=== PATIENT | female | born 1995 | race Caucasian/White ===

== ENCOUNTER 2016-10-13 12:26 | Emergency (ER) | payer OTHER ==
[2016-10-13 12:40] VITALS: BP 117/76; PULSE 112; RESP 18; O2SAT 100
[2016-10-13] MEDS ORDERED: Phenazopyridine 97.5 mg Tablet PO ONE (13:00)
--- NOTE | 2016-10-13 13:01 | ED.REPORT ---
HPI- Female Date of Service Oct 13, 2016 ED Provider: Valentino Bai MD Pt is a 21 y/o female w/ a hx pyelonephritis presenting to the ED c/o UTI-like symptoms onset 6 days ago. The patient has a history of pyelonephritis and believes this episode is exactly similar. She c/o left flank pain, dysuria, urinary frequency, urinary urgency. Pt denies fever, chills, hematuria, vaginal discharge, N/V/D, history of kidney stones, history of urinary tract surgeries, history of STDs. Nursing Notes Stated Complaint: KIDNEY PAIN Chief Complaint: Female Abdominal Pain Nursing Notes Reviewed: Yes Allergies: Coded Allergies: Sulfa (Sulfonamide Antibiotics) (Verified Allergy, Unknown, 10/13/16) Scheduled Ciprofloxacin (Ciprofloxacin) 500 Mg Tablet 500 MG PO BID General Time Seen by MD: 12:58 Chief Complaint Dysuria Hx Obtained From: Patient Arrived By: Walk-in Sudden in Onset?: No Onset Occurred: 6 days ago Symptom Duration: Since onset Location: : Flank left Quality: Painful Severity: Current: Moderate Severity: Maximum: Moderate Past Medical History Past Medical History denies Past Surgical History denies Smoking History Current Every Day Smoker Social History Drug Use: THC Other Social History: Lives with children, Local resident Ambulatory Status Independent Review of Systems Constitutional: Denies: Chills, Fever GI: Reports: Abdominal pain, Denies: Diarrhea, Nausea, Vomiting Female: Reports: Dysuria, Flank pain, Urinary frequency, Urinary urgency, Denies: Hematuria, Incontinence Complete sys rev & neg: except as marked. Physical Exam Initial Vital Signs Vital Signs (First) Date Time Temp Pulse Resp B/P Pulse Ox O2 Delivery O2 Flow Rate FiO2 10/13/16 12:40 37 112 18 117/76 100 Room Air Initial VS: Reviewed, Vital signs abnormal Head / Eyes: Atraumatic, Normocephalic, PERRL ENT: Mucous membranes moist, Conjunctiva normal, No scleral icterus Neck: Supple, Full range of motion Respiratory: Breath sounds normal, Clear to auscultation, No respiratory distress Cardiovascular: Regular rate & rhythm, Heart sounds normal, Intact distal pulses Skin: Warm, Dry, No cyanosis Neurologic: Alert, Oriented, Nonfocal Psychiatric: Mood/affect normal, Behavior normal, Normal thought content Female Genitourinary: Exam deferred General/Constitutional: Awake, Alert, No acute distress, Cooperative, Not toxic appearing Appearance / Presentation: Positive: Uncomfortable Abdomen: Atraumatic, Soft, No guarding, No rebound Tenderness/Guarding/Rebound: Negative: Tender RLQ..., Tender RUQ... Mild left-sided abdominal tenderness Back: Full range of motion, Painless range of motion Left CVAT to percussion Interpretation & Diagnostics Lab Results Interpretation Test 10/13/16 13:24 Urine Color Straw (YELLOW) Urine Appearance Hazy (CLEAR,HAZY) Urine pH 6.0 (5.0-8.0) Urine Specific Barlow 1.020 (1.003-1.035) Urine Protein Negativemg/dL (NEG,TRACE) Urine Glucose (UA) Negativemg/dL (NEGATIVE) Urine Ketones Negativemg/dL (NEGATIVE) Urine Occult Blood Large (NEGATIVE) Urine Nitrite Positive (NEGATIVE) Urine Bilirubin Negative (NEGATIVE) Urine Urobilinogen Normalmg/dL (NORMAL) Urine Leukocyte Esterase Moderate (NEGATIVE) Urine RBC 3-10/hpf (0-2) Urine WBC >50/hpf (0-5) Urine Epithelial Cells Occasional/hpf (NONE-MOD) Urine Crystals None seen (NONE SEEN) Urine Bacteria Many/hpf (NONE-FEW) Urine Hyaline Casts None/lpf (NONE) Urine Granular Casts None seen (NONE SEEN) Urine Waxy Casts None seen (NONE SEEN) Urine Red Blood Cell Casts None seen (NONE SEEN) Urine White Blood Cell Casts None seen (NONE SEEN) Urine Mucus None seen (None Seen) Urine Trichomonas None seen (NONE SEEN) Urine Yeast None (NONE SEEN) Urinalysis Comment None Urine Culture Reflexed Indicated Re-Eval/Medical Decision Med Decision/Clinical Course In summary, the patient is a 21-year-old female with a history of urinary tract infections who presents with approximately one week of worsening UTI symptoms and progression to left flank pain. She delayed coming to the doctor because in the past she has been able to resolve her UTI symptoms by drinking lots of fluids and cranberry juice. Emergency department she is initially tachycardic with a heart rate of 112th of this resolved in the examination room. She is afebrile and otherwise not amply stable. Examination is notable for left flank percussive tenderness. UA notable for: positive nitrite, moderate leukocyte esterase, large WBC, many bacteria Bedside test negative Overall presentation consistent with urinary tract infection that is progressed to pyelonephritis in the setting of delayed treatment. She is nontoxic appearing and now she is initially somewhat tachycardic I am not concerned at this moment for systemic infection. Her presentation is not suggestive of renal colic and she has no history of kidney stones. Abdominal examination is benign and not suggestive of an acute surgical intra-abdominal process. She is not vomiting and is easily tolerating PO therefore I feel that she is appropriate for outpatient management. Urine was sent for culture. She was prescribed a 7 day course of ciprofloxacin and advised to take the full course of antibiotics. She will follow up with her primary care physician in the next couple of days. Follow-up and return precautions were reviewed until she was discharged in good condition. Re-Evaluation/Progress : Time of Eval: 14:26 Patient Status: Pain improved Re-Evaluation/Progress Note: Pt rechecked. Informed pt of plan for treatment. Pt understands and agrees with plan for treatment. F/U instructions and RTER warnings given. All questions addressed. Counseled Regarding: Diagnosis, Lab results, Need for follow-up, When/why to return to ED Discharge & Departure Impression: Primary Impression: Pyelonephritis Additional Impressions: Urinary tract infection Urinary tract infection type: acute pyelonephritis Qualified Code: N10 - Acute tubulo-interstitial nephritis Left flank pain Dysuria Tachycardia Disposition: Home Discharge Condition All VS Reviewed: Yes Condition: Stable Patient Instructions: Acute Pyelonephritis (ED) Additional Instructions: Thank you for seeking care at the emergency room. It is difficult for us to make definitive diagnoses in the ED but we believe that you are experiencing pyelonephritis, an infection of the kidney. Our primary goal today in the ED was to evaluate you for any life-threatening conditions. Your evaluation was reassuring. You will be discharged with a prescription for Ciprofloxacin. Take the full course as directed. You should follow-up with your primary doctor in the next week. A urology referral has been given to you. Consider discussing your recurrent pyelonephritis with them. You should return to the ED immediately if you develop high fevers, vomiting, urinary retention, lightheadedness, weakness or any other concerning signs or symptoms. Thank you for letting us partake in your care today. Referrals: Rakesh Max MD (PCP) Patience Flor MD Scribe Attestation Portions of this note were transcribed by Edward Munroe. I, Dr. Bai personally performed the history, physical exam and medical decision-making; I reviewed and confirmed the accuracy of the information in the transcribed note. Signed by Mode Lechuga, 10/13/16 - 1410 copies to: Rakesh Max MD,Valentino Cedeno MD Oct 13, 2016 13:01 EDWARD MUNROE Oct 13, 2016 14:08
[2016-10-13 14:10] LABS: APPEARANCE,URINE HAZY (CLEAR,HAZY); COLOR,URINE STRAW (YELLOW); OCCULT BLOOD,URINE LARGE (NEGATIVE)
[2016-10-13] MEDS ORDERED: HYDROcodone-APAP 5-325 mg Tablet PO ONE (14:10)
[2016-10-13 14:11] LABS: UROBILINOGEN,URINE NORMAL (NORMAL)
[2016-10-13] MEDS ORDERED: CIPR-198 PO (14:26)
[2016-10-13] MEDS ORDERED: PHEN-683 PO (14:45)
== END 2016-10-13 14:57 | disposition home or self-care (01) ==
LOC: SED 12:26
DX: N10 Acute pyelonephritis (principal); R10.9 Unspecified abdominal pain; R30.0 Dysuria; R00.0 Tachycardia, unspecified; F17.200 Nicotine dependence, unspecified, uncomplicated; B96.20 Unspecified Escherichia coli [E. coli] as the cause of diseases classified elsewhere; Z88.2 Allergy status to sulfonamides

== ENCOUNTER 2017-01-31 09:15 | Emergency (ER) | payer OTHER ==
[~2017-01-31] VITALS: Ht 160 cm; Wt 61.4 kg
[~2017-01-31 09:15] MED LIST: CIPR-198 PO; PHEN-683 PO
[2017-01-31 09:24] VITALS: BP 117/80; PULSE 103; RESP 16; O2SAT 99
--- NOTE | 2017-01-31 09:28 | ED.REPORT ---
HPI-Rash / Abscess Date of Service January 31, 2017 ED Provider: Marc Urbano MD A 21 year old female with a history of pyelonephritis and asthma presents to the ED complaining of an abscess on her head that first appeared a few months ago. She reports that the area spontaneously "popped" this morning and has been painful since opening. She did not experience any pain from the area prior to this morning. Patient squeezed the area and saw white and clear pustule drainage. She describes her pain as a periauricular pressure that radiates down to her neck. Patient has not taken any OTC medications for pain. She denies any vomiting, fever or chills. Nursing Notes Stated Complaint: BUMP ON HEAD/HEAD PAIN Chief Complaint: Skin Rash/Abscess Nursing Notes Reviewed: Yes Allergies: Coded Allergies: Sulfa (Sulfonamide Antibiotics) (Verified Allergy, Unknown, 10/13/16) Scheduled Ciprofloxacin (Ciprofloxacin) 500 Mg Tablet 500 MG PO BID Clindamycin HCl (Cleocin) 300 Mg Capsule 300 MG PO QID Phenazopyridine (Pyridium) 100 Mg Tablet 100 MG PO TID Scheduled PRN Hydrocodone-Acetaminophen 5-325 mg (Hydrocodone-Acetaminophen 5-325 mg) 1 Each Tablet 1-2 TABLET PO HS PRN PRN For Pain General Time Seen by MD: 09:27 Chief Complaint Abscess Hx Obtained From: Patient Arrived By: Walk-in Onset Occurred: More than a week ago... (>6 months) Symptom Duration: Since onset Location: : Head/face Quality: Painful Severity: Current: Mild Severity: Maximum: Mild Associated with: Reports Headache, Denies Fever, Denies Vomiting Pertinent Negative: Pt denies other symptoms Recent Healthcare: No recent doctor visit, No recent hospitalization Past Medical History Past Medical History Asthma Pyelonephritis Past Surgical History denies Smoking History Current Every Day Smoker Social History Alcohol Use: Denies alcohol use Drug Use: THC Other Social History: Good social support, Lives with children, Local resident Ambulatory Status Independent Review of Systems Constitutional: Denies: Chills, Fever GI: Denies: Vomiting Skin: Reports Rash (Abscess to head) Complete sys rev & neg: except as marked. Neurologic: Reports: Headache (Abscess to head - pressure in scalp) Physical Exam Initial Vital Signs Vital Signs (First) Date Time Temp Pulse Resp B/P Pulse Ox O2 Delivery O2 Flow Rate FiO2 01/31/17 09:24 36.7 103 16 117/80 99 Initial VS: Reviewed Extremities: Vascular intact, Neuro intact, No swelling, No tenderness Neurologic: Alert, Oriented, Nonfocal Psychiatric: Mood/affect normal, Behavior normal, Normal thought content General/Constitutional: Awake, Alert, No acute distress Skin: Atraumatic, Color NL, Warm, Dry Color / Condition: Positive: Erythema localized (down the scalp) Rash / Lesion Location: Positive: Head Abscess Notes: ABSCESS: Abscess to the frontal/parietal scalp 3 cm back from the hairline on the left side Head / Eyes: Atraumatic, Normocephalic, PERRL HEAD/EYES: Periauricular erythema Respiratory / Chest: Atraumatic, No respiratory distress Cardiovascular: Heart rate NL, Peripheral circulation NL, Pulses = bilaterally Neck: Atraumatic, Supple, No adenopathy Procedures Incision & Drainage Abscess I & D Abscess: Sebaceous material drained Sharp dissection used to incise Time: 10:06 Procedure Performed by: ED physician Consent / Setup / Site Prep: Consent from patient, Time-out performed, Hand hygiene observed, Stand sterile technique, Sterile drapes applied Location of Abscess: Abscess to the frontal/parietal scalp 3 cm back from the hairline on the left side Skin Preparation Agent: Normal saline Local Anesthesia: Lidocaine w epi 1% Pus Drained: Small Post-Procedure / Complications: Culture obtained, Gram stain ordered, Dressing applied, No complications, Condition improved, Tolerated procedure well , Patient stable Re-Eval/Medical Decision Re-Evaluation/Progress #1: Time of Eval: 09:40 Patient Status: Condition improved Re-Evaluation/Progress Note: Patient is rechecked and her pain has improved but is still present. Upon recheck, she states that she is experieincing mild dizziness. Re-Evaluation/Progress #2: Time of Eval: 10:04 Patient Status: Condition improved Re-Evaluation/Progress Note: Bedisde US reveals minimal fluid. Abscess I&D performed. All questions about diagnosis are addressed. He understands and agrees with the intended treatment plan. Counseled Regarding: Diagnosis, Need for follow-up, When/why to return to ED Discharge & Departure Impression: Primary Impression: Cutaneous abscess Site of cutaneous abscess: head Qualified Code: L02.811 - Cutaneous abscess of head [any part, except face] Additional Impression: Sebaceous cyst Disposition: Home Discharge Condition All VS Reviewed: Yes Condition: Improved Patient Instructions: Abscess (ED), Abscess Incision and Drainage (DC) Additional Instructions: Thank you for trusting us with your care this morning. Your emergency department results are reassuring and I believe that the area on your head is cutaneous abscess that developed from a sebaceous cyst and should resolve with antibiotics. The cyst cavity may still be present once the abscess has resolved and you may want to meet with a dermatology/plastic surgeon to discuss removal. Please take full course of clindamycin as directed and keep the area clean for the next 24 hours. Take 800 mg of ibuprofen every 8 hours and 1000 mg of Tylenol every 6 hours for pain. Please take as directed. Schedule a you schedule a follow up appointment with your primary care physician. Please return to the emergency department if you develop any new or worsening symptoms including any fever, chills, worsening pain, pustule drainage or vomiting. Referrals: Rakesh Max MD (PCP) Edward Joshi MD Attestation Portions of this note were transcribed by Elise Singh. I, Dr. Urbano personally performed the history, physical exam and medical decision-making; I reviewed and confirmed the accuracy of the information in the transcribed note. Signed by: Mode Carranza, 01/31/17 1032. copies to: Rakesh Max MD, Kirk H MD January 31, 2017 09:28 ELISE SINGH January 31, 2017 09:35
[2017-01-31] MEDS ORDERED: CLIN300C3 PO (10:31)
[2017-01-31] MEDS ORDERED: HYDR-4003 PO (10:31)
== END 2017-01-31 11:00 | disposition home or self-care (01) ==
LOC: SED 09:15
DX: L02.811 Cutaneous abscess of head [any part, except face] (principal); L72.3 Sebaceous cyst; J45.909 Unspecified asthma, uncomplicated; F17.200 Nicotine dependence, unspecified, uncomplicated; Z88.2 Allergy status to sulfonamides
CPT/HCPCS: 10061; 87070; 87186; 87205; 96372; 99283; J1885